=== PATIENT | female | born 1995 ===

== ENCOUNTER 2018-10-15 08:19 | Emergency (ER) | payer MEDICAID ==
[2018-10-15 08:32] VITALS: RESP 18; O2SAT 100
--- NOTE | 2018-10-15 09:10 | C.PDOC ---
History Of Present Illness Bilateral lower back pain and suprapubic pain. Patient with lower back pain, painful urination and suprapubic pain 2 days. No fever, no vomiting, no blood in urine.LMP Sep, Time Seen by Provider: 10/15/18 08:57 Chief Complaint (Nursing): Back Pain History Per: Patient History/Exam Limitations: no limitations Onset/Duration Of Symptoms: Gradual Current Symptoms Are (Timing): Still Present Quality Of Discomfort: Dull Severity: Moderate Pain Scale Rating Of: 5 Associated Symptoms: Other (dysuria) Exacerbating Factor(s): Nothing Recent travel outside of the [place]: No Additional History Per: Patient Past Medical History Reviewed: Historical Data, Nursing Documentation, Vital Signs Vital Signs: Last Vital Signs Temp 98.3 F 10/15/18 08:29 Pulse 68 10/15/18 08:29 Resp 18 10/15/18 08:29 BP 118/80 10/15/18 08:29 Pulse Ox 100 10/15/18 08:29 - Medical History PMH: No Chronic Diseases Surgical History: No Surg Hx Family History: States: No Known Family Hx - Social History Hx Tobacco Use: No Hx Alcohol Use: No Hx Substance Use: No - Immunization History Hx Tetanus Toxoid Vaccination: No Hx Influenza Vaccination: No Hx Pneumococcal Vaccination: No Review Of Systems Except As Marked, All Systems Reviewed And Found Negative. Cardiovascular: Positive for: Chest Pain (short episode of pain in chest today). Negative for: Palpitations Gastrointestinal: Negative for: Nausea, Vomiting, Melena Genitourinary: Positive for: Dysuria. Negative for: Vaginal Discharge, Vaginal Bleeding, Pelvic Pain Physical Exam - Physical Exam Appears: Well Skin: Normal Color Head: Atraumatic Eye(s): bilateral: Normal Inspection, PERRL, EOMI Nose: Normal Oral Mucosa: Moist Tongue: Normal Appearing Lips: Normal Appearing Teeth: Normal Dentition Throat: Normal Neck: Normal Lymphatic: Deferred Chest: Symmetrical Respiratory: Normal Breath Sounds Gastrointestinal/Abdominal: Soft, Tenderness (suprapubic tenderness, no guarding, no rebound) Back: CVA Tenderness (mild) Extremity: Normal ROM Extremity: Bilateral: Atraumatic Pulses: Left Dorsalis Pedis: Normal, Right Dorsalis Pedis: Normal Neurological/Psych: Oriented x3, Normal Speech, Normal Motor, Normal Sensation ED Course And Treatment - Laboratory Results Result Diagrams: 10/15/18 09:45 10/15/18 09:45 ECG: Interpreted By Me ECG Rhythm: Sinus Rhythm (63, QT normal, no ST elevation) O2 Sat by Pulse Oximetry: 100 Medical Decision Making Medical Decision Making: Impression: left flank pain Differential Diagnosis included but are not limited to: UTI Plan: -- chem lab -- blood work -- Rocephin -- toradol -- urine culture -- POC urine -- UA Disposition Doctor Will See Patient In The: ED Counseled Patient/Family Regarding: Studies Performed, Diagnosis, Need For Followup, Rx Given - Disposition Disposition: HOME/ ROUTINE Disposition Time: 10:21 Condition: STABLE Prescriptions: Cefuroxime Axetil [Cefuroxime] 500 mg PO BID 7 Days tablet Naproxen [Naprosyn] 500 mg PO BID 5 Days tablet Instructions: Urinary Tract Infections in Adults Forms: General Discharge Instructions, [facility] (Turkmen), Work Excuse - POA Present On Arrival: None - Clinical Impression Clinical Impression: Urinary tract infection - Scribe Statement The provider has reviewed the documentation as recorded by the Akin Charles Do Provider Attestation: All medical record entries made by the Gelyibe were at my direction and person ally dictated by me. I have reviewed the chart and agree that the record accurately reflects my personal performance of the history, physical exam, medical decision making, and the department course for this patient. I have also personally directed, reviewed, and agree with the discharge instructions and disposition.
[2018-10-15 09:49] LABS: BASO # 0.1 K/uL (0.0-0.2); BASO % 0.8 % (0.0-2.0); EOS # 0.1 K/uL (0.0-0.7); EOS % 1.5 % (0.0-4.0); HEMOGLOBIN 13.6 g/dL (11.0-16.0); LYMPH % 30.9 % (20.0-40.0); MEAN CELL VOLUME 87.2 fL (81.0-99.0); MEAN CORPUSCULAR HEMOGLOBIN 28.8 pg (27.0-31.0); MEAN CORPUSCULAR HGB CONC 33.1 g/dL (33.0-37.0); MEAN PLATELET VOLUME 8.6 fL (7.2-11.7); MONO # 0.5 K/uL (0.0-0.8); MONO % 7.8 % (0.0-10.0); NEUT # 3.8 K/uL (1.8-7.0); NRBC % 0.1 % (0.0-2.0); RBC 4.73 Mil/uL (3.80-5.20); WHITE BLOOD COUNT 6.5 K/uL (4.8-10.8)
[2018-10-15 10:03] LABS: ALB/GLOB RATIO 1.6 (1.0-2.1); ALBUMIN 4.5 g/dL (3.5-5.0); ALT/SGPT 38 U/L (9-52); AST/SGOT 27 U/L (14-36); BLOOD UREA NITROGEN 15 mg/dL (7-17); CALCIUM 8.9 mg/dl (8.6-10.4); GFR NON-AFRICAN AMERICAN > 60; LIPASE 23 U/L (23-300)
[2018-10-15 10:14] LABS: SQUAMOUS EPITHIAL 9 /hpf (0-5); URINE BACTERIA OCC (<OCC); URINE BILIRUBIN NEGATIVE (NEGATIVE); URINE BLOOD NEGATIVE (NEGATIVE); URINE CLARITY Hazy (Clear); URINE COLOR Yellow (YELLOW); URINE GLUCOSE (UA) NORMAL (Normal); URINE LEUKOCYTE ESTERASE 3+ Leu/uL (Negative); URINE PROTEIN NEGATIVE (NEGATIVE); URINE UROBILINOGEN NORMAL mg/dL (0.2-1.0)
[2018-10-15 10:57] VITALS: BP 134/64; PULSE 72; TEMP 98.1
== END 2018-10-15 10:57 | disposition home or self-care (01) ==
LOC: C.ER 08:19
DX: N39.0 Urinary tract infection, site not specified (principal)
CPT/HCPCS: 80053; 81001; 81025; 83690; 85025; 87086; 96374; 96375; 99285; J0696; J1885

== ENCOUNTER 2019-01-19 11:55 | Emergency (ER) | payer MEDICAID ==
[2019-01-19 12:06] VITALS: BMI 39.0
[2019-01-19 12:12] VITALS: O2SAT 100
[2019-01-19 13:04] LABS: SQUAMOUS EPITHIAL 10 /hpf (0-5); URINE BACTERIA RARE (<OCC); URINE BILIRUBIN NEGATIVE (NEGATIVE); URINE BLOOD NEGATIVE (NEGATIVE); URINE CLARITY Hazy (Clear); URINE COLOR Amber (YELLOW); URINE GLUCOSE (UA) NORMAL (Normal); URINE LEUKOCYTE ESTERASE 2+ Leu/uL (Negative); URINE PROTEIN NEGATIVE (NEGATIVE); URINE UROBILINOGEN NORMAL mg/dL (0.2-1.0)
[2019-01-19 14:02] LABS: BASO % 0.7 % (0.0-2.0); EOS # 0.1 K/uL (0.0-0.7); EOS % 1.4 % (0.0-4.0); HEMOGLOBIN 14.4 g/dL (11.0-16.0); LYMPH # 1.8 K/uL (1.0-4.3); LYMPH % 30.1 % (20.0-40.0); MEAN CELL VOLUME 88.2 fL (81.0-99.0); MEAN CORPUSCULAR HEMOGLOBIN 29.4 pg (27.0-31.0); MEAN CORPUSCULAR HGB CONC 33.3 g/dL (33.0-37.0); MEAN PLATELET VOLUME 8.3 fL (7.2-11.7); MONO # 0.5 K/uL (0.0-0.8); MONO % 8.4 % (0.0-10.0); NEUT # 3.6 K/uL (1.8-7.0); NEUT % 59.4 % (50.0-75.0); RBC 4.91 Mil/uL (3.80-5.20); RED CELL DISTRIBUTION WIDTH 13.4 % (11.5-14.5); WHITE BLOOD COUNT 6.1 K/uL (4.8-10.8)
--- NOTE | 2019-01-19 14:02 | C.PDOC ---
History Of Present Illness 24 y/o female with no known PMHx presents to the ED complaining of back pain, especially over the right flank, since yesterday. Associated with tactile fever, nausea, and some vomiting last night. Currently patient denies feeling nauseous. Last episode of vomiting was last night. Patient states she was recently diagnosed with kidney stones, however there was no study done. Otherwise patient denies any chest pain, SOB, abdominal pain, diarrhea, dysuria, frequency, or hematuria. Time Seen by Provider: 01/19/19 12:19 Chief Complaint (Nursing): Back Pain History Per: Patient History/Exam Limitations: no limitations Onset/Duration Of Symptoms: Days (x 2) Current Symptoms Are (Timing): Still Present Quality Of Discomfort: "Pain" Past Medical History Reviewed: Historical Data, Nursing Documentation, Vital Signs Vital Signs: Last Vital Signs Temp 98.8 F 01/19/19 12:06 Pulse 69 01/19/19 12:06 Resp 18 01/19/19 12:06 BP 109/75 01/19/19 12:06 Pulse Ox 100 01/19/19 12:06 Surgical History: Cholecystectomy Family History: States: No Known Family Hx - Social History Hx Tobacco Use: No Hx Alcohol Use: No Hx Substance Use: No - Immunization History Hx Tetanus Toxoid Vaccination: No Hx Influenza Vaccination: No Hx Pneumococcal Vaccination: No Review Of Systems Except As Marked, All Systems Reviewed And Found Negative. Constitutional: Positive for: Fever Cardiovascular: Negative for: Chest Pain Respiratory: Negative for: Shortness of Breath Gastrointestinal: Positive for: Nausea, Vomiting. Negative for: Abdominal Pain, Diarrhea Genitourinary: Negative for: Dysuria, Frequency, Incontinence, Hematuria Musculoskeletal: Positive for: Back Pain, Other (Right flank pain) Skin: Negative for: Rash, Lesions Neurological: Negative for: Weakness, Dizziness Physical Exam - Physical Exam Appears: Non-toxic, No Acute Distress Skin: Warm, Dry, No Rash Head: Atraumatic, Normacephalic Eye(s): bilateral: Normal Inspection, PERRL, EOMI Oral Mucosa: Moist Neck: Normal ROM Chest: Symmetrical Cardiovascular: Rhythm Regular, No Murmur Respiratory: Normal Breath Sounds, No Accessory Muscle Use Gastrointestinal/Abdominal: Soft, No Tenderness, No Distention Back: CVA Tenderness (Bilateral), No Vertebral Tenderness, Straight Leg Raising (+ straight leg raise bilaterally), Other (Bilateral flank tenderness) Extremity: Bilateral: Atraumatic, Normal Color And Temperature Pulses: Left Dorsalis Pedis: Normal, Right Dorsalis Pedis: Normal Neurological/Psych: Oriented x3, Normal Speech ED Course And Treatment - Laboratory Results Result Diagrams: 01/19/19 13:58 01/19/19 13:58 Lab Results: Urine Color Cass (YELLOW) 01/19/19 12:34 Urine Clarity Hazy (Clear) 01/19/19 12:34 Urine pH 5.0 (5.0-8.0) 01/19/19 12:34 Ur Specific [place] 1.025 (1.003-1.030) 01/19/19 12:34 Urine Protein Negative mg/dL (NEGATIVE) 01/19/19 12:34 Urine Glucose (UA) Normal mg/dL (Normal) 01/19/19 12:34 Urine Ketones Negative mg/dL (NEGATIVE) 01/19/19 12:34 Urine Blood Negative (NEGATIVE) 01/19/19 12:34 Urine Nitrate Negative (NEGATIVE) 01/19/19 12:34 Urine Bilirubin Negative (NEGATIVE) 01/19/19 12:34 Urine Urobilinogen Normal mg/dL (0.2-1.0) 01/19/19 12:34 Ur Leukocyte Esterase 2+ Susanna/uL (Negative) H 01/19/19 12:34 Urine WBC (Auto) 15 /hpf (0-5) H 01/19/19 12:34 Urine RBC (Auto) 2 /hpf (0-3) 01/19/19 12:34 Ur Squamous Epith Cells 10 /hpf (0-5) H 01/19/19 12:34 Urine Bacteria Rare (<OCC) 01/19/19 12:34 O2 Sat by Pulse Oximetry: 100 (RA) Pulse Ox Interpretation: Normal - CT Scan/US CT abdomen/pelvis Other Rad Studies (CT/US): Read By Radiologist, Radiology Report Reviewed CT/US Interpretation: Accession No. : [id number]. Patient Name / ID : ENRIKE SHIN / [id number]. Exam Date : 01/19/2019 16:25:22 ( Approved ). Study Comment : Sex / Age : F / 24Y. Creator : Pippa Agrawal. Dictator : Enid Wright MD. Pricing Associate : Rv Body Mechanic : Enid Wright MD. Approver2 : Report Date : 01/19/2019 16:37:41. My Comment : . PROCEDURE: CT Abdomen and Pelvis without Oral or IV contrast. HISTORY: r/o stone. COMPARISON: None available. TECHNIQUE: Contiguous axial images of the abdomen and pelvis. No oral or IV contrast administered. Coronal and Sagittal reformats generated and reviewed. Radiation dose: Total exam DLP = 1461.32 mGy-cm. This CT exam was performed using one or more of the following dose reduction techniques: Automated exposure control, adjustment of the mA and/or kV according to patient size, and/or use of iterative reconstruction technique. FINDINGS: There is limited evaluation of the solid organs without the administration of IV contrast. LOWER THORAX: No visible consolidation, pleural effusion, or pneumothorax. LIVER: Unremarkable unenhanced appearance. GALLBLADDER AND BILE DUCTS: Cholecystectomy. PANCREAS: Unremarkable unenhanced appearance. SPLEEN: Unremarkable unenhanced appearance. ADRENALS: Unremarkable unenhanced appearance. KIDNEYS AND URETERS: No hydronephrosis or obstructing renal calculus. BLADDER: The urinary bladder appears unremarkable. REPRODUCTIVE: Uterus is present. APPENDIX: The appendix appears within normal limits of caliber. No secondary signs of acute appendicitis. BOWEL: The stomach is nondistended. Lack of oral contrast limits evaluation for bowel pathology. The bowel loops appear within normal limits of caliber without evidence of intestinal obstruction. PERITONEUM: No significant free fluid. No definite free air. LYMPH NODES: Prominent sub cm mesenteric and retroperitoneal lymph nodes, nonspecific. VASCULATURE: No significant atherosclerotic calcifications identified. No aortic aneurysm. BONES: No acute osseous abnormality is detected. OTHER FINDINGS: None. IMPRESSION: Prominent sub cm mesenteric and retroperitoneal lymph nodes, nonspecific. Correlate clinically for possibility of mesenteric adenitis. Cholecystectomy. Medical Decision Making Medical Decision Making: Impression: Renal stone vs musculoskeletal pain Plan: - Blood work - Urinalysis - Urine culture - 30 mg IV Toradol - Pending CT Abd/Pelvis - Reassess 14:37 Patient continues to complain of pain and nausea. Will give 4 mg IV zofran and 4 mg IV morphine. Labs and imaging reviewed. CT findings discussed with patient. Counseled patient regarding diagnosis and course of discharge. Disposition - Disposition Referrals: [facility] [place]Outside] [facility] [Outside] [facility] [place] [Outside] Disposition: HOME/ ROUTINE Disposition Time: 17:30 Condition: GOOD Prescriptions: Ibuprofen [Motrin] 600 mg PO Q6 5 Days #20 tab Instructions: Low Back Pain (DC) Forms: [employer] [facility] (Albanian), Work Excuse - Clinical Impression Clinical Impression: Low back pain - Scribe Statement The provider has reviewed the documentation as recorded by the Akin Ledesma Provider Attestation: All medical record entries made by the Gelyibpete were at my direction and personally dictated by me. I have reviewed the chart and agree that the record accurately reflects my personal performance of the history, physical exam, medical decision making, and the department course for this patient. I have also personally directed, reviewed, and agree with the discharge instructions and disposition.
[2019-01-19 14:07] LABS: HCG,QUALITATIVE URINE NEGATIVE (NEGATIVE)
[2019-01-19 14:15] LABS: ALB/GLOB RATIO 1.6 (1.0-2.1); ALBUMIN 4.5 g/dL (3.5-5.0); ALT/SGPT 30 U/L (9-52); AST/SGOT 30 U/L (14-36); BLOOD UREA NITROGEN 12 mg/dL (7-17); CALCIUM 9.2 mg/dl (8.6-10.4); GFR NON-AFRICAN AMERICAN > 60
[2019-01-19 14:18] LABS: SQUAMOUS EPITHIAL 16 /hpf (0-5); URINE BACTERIA RARE (<OCC); URINE BILIRUBIN NEGATIVE (NEGATIVE); URINE BLOOD NEGATIVE (NEGATIVE); URINE CLARITY Hazy (Clear); URINE COLOR Yellow (YELLOW); URINE GLUCOSE (UA) NORMAL (Normal); URINE LEUKOCYTE ESTERASE 2+ Leu/uL (Negative); URINE PROTEIN NEGATIVE (NEGATIVE); URINE UROBILINOGEN NORMAL mg/dL (0.2-1.0)
[2019-01-19] MEDS ORDERED: Morphine 4 MG/ML VIAL ONE (14:44)
[2019-01-19 14:57] VITALS: RESP 16
--- NOTE | 2019-01-19 17:07 | CT ---
PROCEDURE: CT Abdomen and Pelvis without Oral or IV contrast. HISTORY: r/o stone COMPARISON: None available. TECHNIQUE: Contiguous axial images of the abdomen and pelvis. No oral or IV contrast administered. Coronal and Sagittal reformats generated and reviewed. Radiation dose: Total exam DLP = 1461.32 mGy-cm. This CT exam was performed using one or more of the following dose reduction techniques: Automated exposure control, adjustment of the mA and/or kV according to patient size, and/or use of iterative reconstruction technique. FINDINGS: There is limited evaluation of the solid organs without the administration of IV contrast. LOWER THORAX: No visible consolidation, pleural effusion, or pneumothorax. LIVER: Unremarkable unenhanced appearance. GALLBLADDER AND BILE DUCTS: Cholecystectomy. PANCREAS: Unremarkable unenhanced appearance. SPLEEN: Unremarkable unenhanced appearance. ADRENALS: Unremarkable unenhanced appearance. KIDNEYS AND URETERS: No hydronephrosis or obstructing renal calculus. BLADDER: The urinary bladder appears unremarkable. REPRODUCTIVE: Uterus is present. APPENDIX: The appendix appears within normal limits of caliber. No secondary signs of acute appendicitis. BOWEL: The stomach is nondistended. Lack of oral contrast limits evaluation for bowel pathology. The bowel loops appear within normal limits of caliber without evidence of intestinal obstruction. PERITONEUM: No significant free fluid. No definite free air. LYMPH NODES: Prominent sub cm mesenteric and retroperitoneal lymph nodes, nonspecific. VASCULATURE: No significant atherosclerotic calcifications identified. No aortic aneurysm. BONES: No acute osseous abnormality is detected. OTHER FINDINGS: None. IMPRESSION: Prominent sub cm mesenteric and retroperitoneal lymph nodes, nonspecific. Correlate clinically for possibility of mesenteric adenitis. Cholecystectomy.
[2019-01-19 17:36] VITALS: BP 113/75; PULSE 58; TEMP 98.2
== END 2019-01-19 17:44 | disposition home or self-care (01) ==
LOC: C.ER 11:55
DX: M54.5 Low back pain (principal)
CPT/HCPCS: 74176; 80053; 81001; 81025; 84703; 85025; 87086; 96374; 96375; 99285; J1885; J2270; J2405